=== PATIENT | female | born 1960 | race Caucasian/White ===

== ENCOUNTER → 2020-08-22 | Outpatient (CLI) | payer OTHER ==
[~2020-08-22] MED LIST: ASPIRIN EC81 MG PO; CALTRATE 600 +1 EACH PO; CELECOXIB200 MG PO; CLARITIN 10MG T10 MG PO; DULOXETINE HCL30 MG PO; DULOXETINE HCL60 MG PO; FENOFIBRATE160 MG PO; FISH OIL 1,0001 EACH PO; GABAPENTIN800 MG PO; HUMALOG 10100 UNITS/ SC; JARDIANCE10 MG PO; LOSARTAN POTAS100 MG PO; METFORMIN HCL1000 MG PO; METHOCARBAMOL500 MG PO; OZEMPIC0.25 MG/0. SQ; PAROXETINE HCL10 MG PO; PRAVASTATIN SOD40 MG PO; TOUJEO MAX300 UNIT/1 SQ; TRAMADOL HCL50 MG PO
== END ==
LOC: ECHO 11:36
DX: R07.9 Chest pain, unspecified (principal); I08.1 Rheumatic disorders of both mitral and tricuspid valves
CPT/HCPCS: ECHO; 93306

== ENCOUNTER → 2020-09-02 | Outpatient (CLI) | payer OTHER | LOC: HEART 5 11:15 | DX: R07.9 Chest pain, unspecified (principal); R94.39 Abnormal result of other cardiovascular function study ==

== ENCOUNTER → 2020-09-26 | Outpatient (CLI) | payer OTHER ==
[2020-09-26 12:40] LABS: HEMOGLOBIN 13.8 gm/dl (12.3-15.3); RED BLOOD COUNT 4.29 M/UL (4.00-5.10); WHITE BLOOD COUNT 6.7 K/UL (4.5-11.0)
== END ==
LOC: LAB 12:01
PROVIDERS: Internal Medicine Interventional Cardiology
DX: R06.00 Dyspnea, unspecified (principal); R07.9 Chest pain, unspecified; I10 Essential (primary) hypertension; E78.00 Pure hypercholesterolemia, unspecified; E11.9 Type 2 diabetes mellitus without complications
CPT/HCPCS: 36415; 80048; 85025; 85610; 85730

== ENCOUNTER 2020-10-07 09:10 | Outpatient (CLI) | payer OTHER ==
[~2020-10-07] VITALS: Ht 167.6 cm; Wt 75.3 kg
[2020-10-07] MEDS ORDERED: JARDIANCE10 MG PO (10:09)
[2020-10-07] MEDS ORDERED: ASPIRIN EC81 MG PO (10:11)
[2020-10-07] MEDS ORDERED: CELECOXIB200 MG PO (10:11)
[2020-10-07] MEDS ORDERED: DULOXETINE HCL60 MG PO (10:12)
[2020-10-07] MEDS ORDERED: DULOXETINE HCL30 MG PO (10:12)
[2020-10-07] MEDS ORDERED: OZEMPIC0.25 MG/0. SQ (10:13)
[2020-10-07] MEDS ORDERED: METFORMIN HCL1000 MG PO (10:13)
[2020-10-07] MEDS ORDERED: PRAVASTATIN SOD40 MG PO (10:14)
[2020-10-07] MEDS ORDERED: TOUJEO MAX300 UNIT/1 SQ (10:14)
[2020-10-07] MEDS ORDERED: GABAPENTIN800 MG PO (10:15)
[2020-10-07] MEDS ORDERED: CLARITIN 10MG T10 MG PO (10:15)
[2020-10-07] MEDS ORDERED: FENOFIBRATE160 MG PO (10:16)
[2020-10-07] MEDS ORDERED: LOSARTAN POTAS100 MG PO (10:16)
[2020-10-07] MEDS ORDERED: CALTRATE 600 +1 EACH PO (10:17)
[2020-10-07] MEDS ORDERED: FISH OIL 1,0001 EACH PO (10:17)
[2020-10-07] MEDS ORDERED: HUMALOG 10100 UNITS/ SC (10:19)
[2020-10-07] MEDS ORDERED: METHOCARBAMOL500 MG PO (10:20)
[2020-10-07] MEDS ORDERED: PAROXETINE HCL10 MG PO (10:22)
[2020-10-07] MEDS ORDERED: TRAMADOL HCL50 MG PO (10:24)
--- NOTE | 2020-10-07 23:31 | NUR ---
PT LEFT WITH EMS SERVICE AT 2327. PT DENIED PAIN, DENIED CHEST PAIN, AND HAD NO COMPLAINTS WHILE MOVING SELF ONTO STRETCHER. PT WAS ALERT AND ORIENTED AND STABLE UPON LEAVING. PT VOIDED PRIOR TO LEAVING. THE SHEATH SITE TO THE PT'S RIGHT GROIN WAS WITHIN NORMAL LIMITS, SOFT, NO SIGNS OF OOZING OR BLEEDING, AND ONLY MILDLY TENDER TO PALPATION, COVERED IN A TRANSPARENT DRESSING AND 2X2'S POST PROCEDURE.
== END 2020-10-07 23:27 | disposition other institution (70) ==
LOC: CATH 09:10 → PROG CARE 13:55 → CATH 23:27
DX: I25.118 Atherosclerotic heart disease of native coronary artery with other forms of angina pectoris (principal); I10 Essential (primary) hypertension; E11.9 Type 2 diabetes mellitus without complications; Z79.82 Long term (current) use of aspirin; Z79.4 Long term (current) use of insulin; Z79.899 Other long term (current) drug therapy
CPT/HCPCS: 82962; 99152; C1769; J1644; J2250; J3010; J7030; Q9967

== ENCOUNTER → 2021-02-26 | Outpatient (CLI) | payer OTHER | LOC: HEART 5 07:50 | DX: I20.9 Angina pectoris, unspecified (principal); R94.39 Abnormal result of other cardiovascular function study; I08.1 Rheumatic disorders of both mitral and tricuspid valves; Z95.1 Presence of aortocoronary bypass graft | CPT/HCPCS: 93306 ==